=== PATIENT | male | born 1950 | race Caucasian/White ===

== ENCOUNTER → 2023-05-20 14:40 | Outpatient (CLI) | payer OTHER, SELFPAY ==
--- NOTE | 2023-05-20 | DI.ECHO.S_ITS ---
[facility] +---------+ : : [address] : : : : [id number] : : : : Phone: [phone]+ Echocardiogram Report + + :Name: ADDIE CONNOLLY Study Date: 05/20/2023 Height: 70 in : :[facility] ReadingLocation: Weight: 215 lb : : Gender: Male BSA: 2.2 m2 : :: 1950 Age: 73 yrs BP: 167/83 mmHg: :Reason For Study: Coronary Artery Disease : :Ordering Physician: ALLIE, : :ROBERT Performed By: Julissa Hayes : :Referring: ROBERT KELLEY : + + Interpretation Summary The ejection fraction is estimated to be 55-60%. Diastolic parameters suggest probable normal left ventricular diastolic function and normal filling pressures. The right ventricle is borderline dilated. The right ventricular systolic function is normal. There is trace aortic regurgitation. There is mild tricuspid regurgitation. The right ventricular systolic pressure is estimated to be at least 33 mmHg based on an estimated right atrial pressure of 3 mm Hg. Procedure: A two-dimensional transthoracic echocardiogram with color flow and Doppler was performed. The study quality was technically adequate. There is no prior echocardiogram noted for this patient. The patient was in normal sinus rhythm during the exam. Left Ventricle: The left ventricle is normal in size. The ejection fraction is estimated to be 55-60%. Diastolic parameters suggest probable normal left ventricular diastolic function and normal filling pressures. Right Ventricle: The right ventricle is borderline dilated. The right ventricular systolic function is normal. Atria: The left atrial size is normal. Right atrial size is normal. There is no Doppler evidence for an interatrial shunt. Mitral Valve: The mitral valve leaflets appear borderline thickened, but open well. There is no mitral valve stenosis. There is trace mitral regurgitation. Aortic Valve: The aortic valve is trileaflet. There is no aortic valve stenosis. There is trace aortic regurgitation. Tricuspid Valve: The tricuspid valve is normal. There is no tricuspid stenosis. There is mild tricuspid regurgitation. The right ventricular systolic pressure is estimated to be at least 33 mmHg based on an estimated right atrial pressure of 3 mm Hg. Pulmonic Valve: The pulmonic valve leaflets are thin and pliable; valve motion is normal. There is no pulmonic valvular stenosis. There is trace pulmonic regurgitation. Great Vessels: The aortic root is normal size. The ascending aorta is normal in size. The pulmonary artery is normal size. The IVC is of normal diameter and collapses greater than 50% with a sniff. This suggests a low right atrial pressure of 3 mm Hg. Pericardium/ Pleura There is no pericardial effusion. There is no pleural effusion. MMode/2D Measurements & Calculations LVIDd: 4.6 cm LVOT diam: 2.3 cm LVIDs: 3.5 cm Ao root diam: 3.5 cm FS: 23.9 % asc Aorta Diam: 3.5 cm EPSS: 1.0 cm IVSd: 1.1 cm LVPWd: 1.0 cm LV jackson. diameter/BSA (cm/m^2): 2.1 LV sys. diameter/BSA (cm/m^2): 1.6 LA A2 area: 17.7 cm2 RA long axis: 6.4 cm LA A4 area: 15.0 cm2 RA area: 15.1 cm2 LA length (vol): 5.6 cm RA vol: 30.4 ml LA vol: 40.6 ml RA : 14.1 ml/m2 LA vol index: 18.9 ml/m2 RVD1 (basal): 4.0 cm LVLs ap4: 5.8 cm LVLd ap2: 7.4 cm TAPSE_phl: 2.2 cm LVLs ap2: 6.2 cm Doppler Measurements & Calculations Ao V2 max: 110.3 cm/sec LVOT Max Scott: 100.3 cm/sec Ao V2 mean: 75.0 cm/sec LV V1 max P.0 mmHg Ao max P.0 mmHg LV V1 VTI: 21.5 cm Ao mean P.7 mmHg HAZEL(I,D): 3.8 cm2 Ao V2 VTI: 23.8 cm HAZEL(V,D): 3.8 cm2 sev ratio: 0.90 HAZEL indexed to BSA (cm^2/m^2): 1.7 MV E max scott: 95.5 cm/sec TR max scott: 261.1 cm/sec MV A max scott: 74.1 cm/sec TR max P.3 mmHg MV E/A: 1.3 PA V2 max: 125.0 cm/sec Med Peak E' Scott: 8.2 cm/sec PA V2 mean: 80.8 cm/sec E/E' med: 11.7 PA mean P.0 mmHg Lat Peak E' Scott: 9.6 cm/sec PA pr(Accel): 43.5 mmHg E/E' lat: 9.9 E/e' average: 10.8 MV dec time: 0.17 sec SV(LVOT): 89.3 ml AV VR_phl: 0.91 HAZEL(VTI)/BSA_phl: 1.7 Reading Physician:04:12 PM
== END ==
PROVIDERS: Referring Provider Chiropractor; Visit Provider Chiropractor
DX: I07.1 Rheumatic tricuspid insufficiency (principal); I25.10 Atherosclerotic heart disease of native coronary artery without angina pectoris
CPT/HCPCS: 93306